=== PATIENT | male | born 1945 | race Caucasian/White ===

== ENCOUNTER 2018-01-15 14:08 | Inpatient (IN) | payer OTHER ==
[~2018-01-15] VITALS: Ht 172.7 cm; Wt 95.6 kg
[2018-01-15] VITALS (19 sets, daily range): BP systolic 112–182; BP diastolic 61–95; PULSE 86–134; RESP 15–32; TEMP 98–98.9; O2SAT 93–98
--- NOTE | 2018-01-15 14:23 | PD ---
HPI Chief Complaint: Respiratory Symptoms Time Seen by Provider: 14:16 Travel History International Travel<30 days: No Contact w/Intl Traveler<30days: No Traveled to known affect area: No History of Present Illness HPI 72-year-old male is complaining of shortness of breath. He believes he has had COPD since about 2004. 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 He is on home oxygen at night and sporadically throughout the day. He is on multiple inhalers. He was found to have atrial fibrillation recently and has been started on warfarin. He says that 2 days ago he was started on diltiazem. He says that since taking the diltiazem is been feeling weak and dizzy and has been sleeping more than usual. Today he became quite short of breath. He is a patient at the [facility]. He is not having chest pain. He does not have ankle edema. He has no history of congestive heart failure. He had a left lower lobe lobectomy because of cancer several years ago. He says that no further treatment was needed and apparently there is been no evidence of cancer recently PFSH Past Medical History Hx Anticoagulant Therapy: Yes Cardiovascular Problems: Yes ?: Not Social History Tobacco Use: No Allergies-Medications (Allergen,Severity, Reaction): Coded Allergies: ciprofloxacin (Verified Allergy, Intermediate, Nausea/Vomiting, 01/15/18) metronidazole (Verified Allergy, Intermediate, Twitching, 01/15/18) Reported Meds & Prescriptions Reported Meds & Active Scripts Active Reported Diltiazem CD 24 HR 120 Mg Caper 120 Mg PO DAILY Mucus Relief ER (Guaifenesin) 600 Mg Tab 400 Mg PO BID PRN Finasteride 5 Mg Tab 5 Mg PO DAILY Do not crush. Tamsulosin (Tamsulosin HCl) 0.4 Mg Cap 0.4 Mg PO HS Bupropion HCl 100 Mg Tab 100 Mg PO HS Simvastatin 5 Mg Tab 0 PO DAILY Claritin (Loratadine) 10 Mg Cap 10 Mg PO DAILY Omeprazole 20 Mg Tab 20 Mg PO DAILY Warfarin 7.5 Mg Tab 7.5 Mg PO Sat Warfarin 5 Mg Tab 5 Mg PO DAILY Albuterol Neb (Albuterol Sulfate) 2.5 Mg/3 Ml Neb 2.5 Mg NEB TID NEB PRN Ventolin Hfa 18 GM Inh (Albuterol Sulfate) 90 Mcg/Act Aer 2 Puff INH Q4-6H PRN Spiriva Respimat Inh (Tiotropium Inh) 2.5 Mcg/Act Aero 2 Puff INH DAILY 2.5 mcg = 1 inhalation Daliresp (Roflumilast) 500 Mcg Tab 500 Mcg PO DAILY Symbicort Inh (Budesonide/Formoterol Fumarate) 160-4.5 Mcg/Act Aero 2 Puff INH Q12HR Review of Systems General / Constitutional: No: Fever, Chills Eyes: No: Diploplia, Blurred Vision HENT: No: Headaches, Vertigo Cardiovascular: No: Chest Pain or Discomfort Respiratory: Positive: Cough, Shortness of Breath, Wheezing Gastrointestinal: No: Vomiting, Diarrhea Genitourinary: No: Urgency, Frequency Musculoskeletal: No: Myalgias, Arthralgias Skin: No Rash Neurologic: Positive: Weakness, No: Syncope Psychiatric: No: Anxiety Endocrine: No: Heat Intolerance, Cold Intolerance Hematologic/Lymphatic: No: Easy Bruising Physical Exam Narrative GENERAL: Well-developed male. He is in moderate respiratory distress. His oxygen saturation on oxygen is 91%. SKIN: Focused skin assessment warm/dry. HEAD: Atraumatic. Normocephalic. EYES: Pupils equal and round. No scleral icterus. No injection or drainage. ENT: No nasal bleeding or discharge. Mucous membranes pink and moist. NECK: Trachea midline. No JVD. CARDIOVASCULAR: Rapid IRregular rate and rhythm. No murmur appreciated. RESPIRATORY: There is accessory muscle use. There are bilateral rhonchi. There are bibasilar rales GASTROINTESTINAL: Abdomen soft, non-tender, nondistended. Hepatic and splenic margins not palpable. MUSCULOSKELETAL: No obvious deformities. No clubbing. No cyanosis. No edema. NEUROLOGICAL: Awake and alert. No obvious cranial nerve deficits. Motor grossly within normal limits. Normal speech. PSYCHIATRIC: Appropriate mood and affect; insight and judgment normal. Data Data Last Documented VS Vital Signs Date Time Temp Pulse Resp B/P (MAP) Pulse Ox O2 Delivery O2 Flow Rate FiO2 01/15/18 16:26 98 96 Nasal Cannula 2.00 01/15/18 16:26 18 124/74 (91) 01/15/18 14:40 98.0 Orders Orders Complete Blood Count With Diff (01/15/18 14:16) Comprehensive Metabolic Panel (01/15/18 14:16) B-Type Natriuretic Peptide (01/15/18 14:16) Act Partial Throm Time (Ptt) (01/15/18 14:16) Prothrombin Time / Inr (Pt) (01/15/18 14:16) Magnesium (Mg) (01/15/18 14:16) Troponin I (01/15/18 14:16) Urinalysis - C+S If Indicated (01/15/18 14:16) Iv Access Insert/Monitor (01/15/18 14:16) Electrocardiogram (01/15/18 14:16) Ecg Monitoring (01/15/18 14:16) Oximetry (01/15/18 14:16) Oxygen Administration (01/15/18 14:16) Chest, Single Ap (01/15/18 14:16) Sodium Chloride 0.9% Flush (Ns Flush) (01/15/18 14:30) Methylprednisolone So Succ Inj (Solumedr (01/15/18 14:30) Albuterol-Ipratropium Neb (Duoneb Neb) (01/15/18 14:30) Diltiazem (Cardizem) (01/15/18 14:30) Digoxin Inj (Lanoxin Inj) (01/15/18 14:30) Blood Culture (01/15/18 14:38) Ceftriaxone Inj (Rocephin Inj) (01/15/18 14:45) Azithromycin (Zithromax) (01/15/18 15:15) Admit Order (Ed Use Only) (01/15/18 16:37) Labs Laboratory Tests Test 01/15/18 14:14 White Blood Count 11.9 TH/MM3 Red Blood Count 4.93 MIL/MM3 Hemoglobin 14.0 GM/DL Hematocrit 41.4 % Mean Corpuscular Volume 83.9 FL Mean Corpuscular Hemoglobin 28.5 PG Mean Corpuscular Hemoglobin Concent 33.9 % Red Cell Distribution Width 13.7 % Platelet Count 235 TH/MM3 Mean Platelet Volume 7.0 FL Neutrophils (%) (Auto) 63.2 % Lymphocytes (%) (Auto) 22.4 % Monocytes (%) (Auto) 11.2 % Eosinophils (%) (Auto) 2.7 % Basophils (%) (Auto) 0.5 % Neutrophils # (Auto) 7.5 TH/MM3 Lymphocytes # (Auto) 2.7 TH/MM3 Monocytes # (Auto) 1.3 TH/MM3 Eosinophils # (Auto) 0.3 TH/MM3 Basophils # (Auto) 0.1 TH/MM3 CBC Comment DIFF FINAL Differential Comment Prothrombin Time 29.4 SEC Prothromb Time International Ratio 2.9 RATIO Activated Partial Thromboplast Time 43.9 SEC Blood Urea Nitrogen 32 MG/DL Creatinine 0.95 MG/DL Random Glucose 95 MG/DL Total Protein 7.7 GM/DL Albumin 3.7 GM/DL Calcium Level 9.1 MG/DL Magnesium Level 2.1 MG/DL Alkaline Phosphatase 63 U/L Aspartate Amino Transf (AST/SGOT) 23 U/L Alanine Aminotransferase (ALT/SGPT) 30 U/L Total Bilirubin 0.3 MG/DL Sodium Level 139 MEQ/L Potassium Level 4.1 MEQ/L Chloride Level 103 MEQ/L Carbon Dioxide Level 26.9 MEQ/L Anion Gap 9 MEQ/L Estimat Glomerular Filtration Rate 77 ML/MIN Troponin I LESS THAN 0.02 NG/ML B-Type Natriuretic Peptide 29 PG/ML Thyroid Stimulating Hormone 3rd Gen 0.598 uIU/ML MDM Medical Decision Making Medical Screen Exam Complete: Yes Emergency Medical Condition: Yes Medical Record Reviewed: Yes Differential Diagnosis Differential includes pneumonia, COPD, CHF, rapid atrial fib Narrative Course Patient does have rapid atrial fibrillation. He has significant COPD also and I do not think is really a candidate for beta-blockade at this time. He does feel like Cardizem is been making him tired but I do think he needs some rate control. I have ordered 60 mg of oral diltiazem and 0.25 mg IV of digoxin. His EKG shows atrial fibrillation at a rate of 127. There are no ischemic changes there is marked left axis deviation. Chest x-ray shows parenchymal changes at the right base which may represent an early inflammatory process. Blood cultures have been ordered and Rocephin initiated Diagnosis Primary Impression: COPD exacerbation Additional Impression: Rapid atrial fibrillation Saul Rothman MD Jan 15, 2018 14:23
[2018-01-15] MEDS: RESP: ALBUTEROL 2.5 MG/IPRATROPIUM 0.5 MG NEB (SCH) INH ×3 (14:29→19:31)
[2018-01-15] MEDS ORDERED: DIGOXIN 0.5 MG/2 ML VIAL IV PUSH ONE (14:30)
[2018-01-15] MEDS ORDERED: SODIUM CHLORIDE 0.9% FLUSH 10 ML FLUSH IVF PRN (14:30)
[2018-01-15] MEDS ORDERED: DILTIAZEM HCL 60 MG TAB PO ONE (14:30)
[2018-01-15] MEDS ORDERED: methylPREDNISolone SOD SUCC 125 MG/2 ML VIAL IV PUSH ONE (14:30)
--- NOTE | 2018-01-15 14:33 | RADRPT ---
EXAM DATE: 01/15/2018 2:27 PM EDT AGE/SEX: 72 years / Male INDICATIONS: Short of breath and cough CLINICAL DATA: This is the patient's initial encounter. Patient reports that signs and symptoms have been present for 1 day and indicates a pain score of 0/10. MEDICAL/SURGICAL HISTORY: Hypertension. Chronic obstructive pulmonary disease. Gastroesophage al reflux disease. . Left lobectomy COMPARISON: No prior exams available for comparison. FINDINGS: Moderate parenchymal changes right base. Left lung clear. Azygos lobe noted. The heart and pulmonary vascularity are normal. The portion of the bony skeleton visualized is unremarkable. CONCLUSION: Mild hyperinflation with moderate parental changes right base. Could be an early inflammatory process . There is no congestive failure Electronically signed by: Tad Schwab MD 01/15/2018 2:32 PM EDT
[2018-01-15] MEDS ORDERED: TIOT12.9 INH (14:36)
[2018-01-15] MEDS ORDERED: CLAR10CA3 PO (14:36)
[2018-01-15] MEDS ORDERED: DILT120C50 PO (14:36)
[2018-01-15] MEDS ORDERED: CARD120T4 PO (14:36)
[2018-01-15] MEDS ORDERED: FINA5TAB2 PO (14:36)
[2018-01-15] MEDS ORDERED: GUAI600T11 PO (14:36)
[2018-01-15] MEDS ORDERED: ROFL1TAB2 PO (14:36)
[2018-01-15] MEDS ORDERED: WARF-23 PO (14:36)
[2018-01-15] MEDS ORDERED: TAMS0.4C4 PO (14:36)
[2018-01-15] MEDS ORDERED: SIMV5TAB3 PO (14:36)
[2018-01-15] MEDS ORDERED: VENTAER INH (14:36)
[2018-01-15] MEDS ORDERED: BUPR100T4 PO (14:36)
[2018-01-15] MEDS ORDERED: SYMB160A INH (14:36)
[2018-01-15] MEDS ORDERED: OMEP20TA93 PO (14:36)
[2018-01-15] MEDS ORDERED: WARF-21 PO (14:36)
[2018-01-15] MEDS ORDERED: ALBU0.08 NEB (14:36)
[2018-01-15 14:42] LABS: AUTOMATED NEUTROPHIL # 7.5 TH/MM3 (1.8-7.7); BASOPHIL # 0.1 TH/MM3 (0-0.2); BASOPHIL % 0.5 % (0.0-2.0); EOSINOPHIL # 0.3 TH/MM3 (0-0.4); EOSINOPHIL % 2.7 % (0.0-4.0); HEMATOCRIT 41.4 % (39.0-51.0); LYMPH % 22.4 % (9.0-44.0); LYMPHOCYTE # 2.7 TH/MM3 (1.0-4.8); MEAN CELL VOLUME 83.9 FL (80.0-100.0); MEAN CORPUSCULAR HEMOGLOBIN 28.5 PG (27.0-34.0); MEAN CORPUSCULAR HGB CONC 33.9 % (32.0-36.0); MONO % 11.2 % (0.0-8.0); MONOCYTE # 1.3 TH/MM3 (0-0.9); NEUT % 63.2 % (16.0-70.0); PLATELET COUNT 235 TH/MM3 (150-450); RED BLOOD COUNT 4.93 MIL/MM3 (4.50-5.90); RED CELL DISTRIBUTION WIDTH 13.7 % (11.6-17.2); WHITE BLOOD COUNT 11.9 TH/MM3 (4.0-11.0)
[2018-01-15] MEDS ORDERED: cefTRIAXone INJ 1,000 MG in SODIUM CHLORIDE 0.9% INJ 100 ML IV ONE (14:45)
[2018-01-15 14:46] LABS: CHLORIDE 103 MEQ/L (98-107); SODIUM (NA) 139 MEQ/L (136-145)
[2018-01-15 14:49] LABS: CALCIUM 9.1 MG/DL (8.5-10.1)
[2018-01-15 14:50] LABS: ALBUMIN 3.7 GM/DL (3.4-5.0); BICARBONATE 26.9 MEQ/L (21.0-32.0); BLOOD UREA NITROGEN 32 MG/DL (7-18); GLUCOSE,RANDOM 95 MG/DL (74-106); MAGNESIUM 2.1 MG/DL (1.5-2.5)
[2018-01-15 14:52] LABS: INTERNATIONAL NORMALIZED RATIO 2.9 RATIO; PROTHROMBIN TIME - PATIENT 29.4 SEC (9.8-11.6)
[2018-01-15 14:53] LABS: ALT (GPT) 30 U/L (12-78); AST (GOT) 23 U/L (15-37); CREATININE 0.95 MG/DL (0.60-1.30); GLOMERULAR FILTRATION RATE 77 ML/MIN (>89)
[2018-01-15 14:55] LABS: TOTAL BILIRUBIN ADULT 0.3 MG/DL (0.2-1.0); TOTAL PROTEIN 7.7 GM/DL (6.4-8.2)
[2018-01-15 14:56] LABS: ALKALINE PHOSPHATASE 63 U/L (45-117)
[2018-01-15 14:58] LABS: TROPONIN I LESS THAN 0.02 NG/ML (0.02-0.05)
--- NOTE | 2018-01-15 15:07 | PD ---
Physical Exam Narrative Received sign out from previous provider to follow up on labs and admit patient. 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 Said he has been feeling generalized weakness and was walking yesterday and felt palpitations. Said he felt more sob with walking but at rest as well. Pt was found in afib in the 140s and given digoxin 0.25mg IV and diltiazem 60mg PO by previous team. Pt has significant wheezing and is in COPD exacerbation and given duonebs and methylprednisolone. Labs reviewed, WBC 11.9. H/H normal. INR therapeutic at 2.9. BUN elevated at 32. BUN/ creatinine ratio is 3:1 so will give NS IVF. BNP normal. Troponin negative. CXR showed mild hyperinflation with moderate parenchymal change in right base. Pt was given ceftriaxone after blood cultures were drawn by previous team. Will add azithromycin to cover community acquired pneumonia. Pt has not been hospitalized in the last 3 months. Pt was recently diagnosed with afib 2-3 weeks ago and HR is now 90s to low 110s. Pt is feeling a little better. Will observe overnight. Data Data Last Documented VS Vital Signs Date Time Temp Pulse Resp B/P (MAP) Pulse Ox O2 Delivery O2 Flow Rate FiO2 01/15/18 14:40 98.0 125 20 162/84 (110) 98 Nasal Cannula 2.00 Orders Orders Complete Blood Count With Diff (01/15/18 14:16) Comprehensive Metabolic Panel (01/15/18 14:16) B-Type Natriuretic Peptide (01/15/18 14:16) Act Partial Throm Time (Ptt) (01/15/18 14:16) Prothrombin Time / Inr (Pt) (01/15/18 14:16) Magnesium (Mg) (01/15/18 14:16) Troponin I (01/15/18 14:16) Urinalysis - C+S If Indicated (01/15/18 14:16) Iv Access Insert/Monitor (01/15/18 14:16) Electrocardiogram (01/15/18 14:16) Ecg Monitoring (01/15/18 14:16) Oximetry (01/15/18 14:16) Oxygen Administration (01/15/18 14:16) Chest, Single Ap (01/15/18 14:16) Sodium Chloride 0.9% Flush (Ns Flush) (01/15/18 14:30) Methylprednisolone So Succ Inj (Solumedr (01/15/18 14:30) Albuterol-Ipratropium Neb (Duoneb Neb) (01/15/18 14:30) Diltiazem (Cardizem) (01/15/18 14:30) Digoxin Inj (Lanoxin Inj) (01/15/18 14:30) Blood Culture (01/15/18 14:38) Ceftriaxone Inj (Rocephin Inj) (01/15/18 14:45) Azithromycin (Zithromax) (01/15/18 15:15) Labs Laboratory Tests Test 01/15/18 14:14 White Blood Count 11.9 TH/MM3 Red Blood Count 4.93 MIL/MM3 Hemoglobin 14.0 GM/DL Hematocrit 41.4 % Mean Corpuscular Volume 83.9 FL Mean Corpuscular Hemoglobin 28.5 PG Mean Corpuscular Hemoglobin Concent 33.9 % Red Cell Distribution Width 13.7 % Platelet Count 235 TH/MM3 Mean Platelet Volume 7.0 FL Neutrophils (%) (Auto) 63.2 % Lymphocytes (%) (Auto) 22.4 % Monocytes (%) (Auto) 11.2 % Eosinophils (%) (Auto) 2.7 % Basophils (%) (Auto) 0.5 % Neutrophils # (Auto) 7.5 TH/MM3 Lymphocytes # (Auto) 2.7 TH/MM3 Monocytes # (Auto) 1.3 TH/MM3 Eosinophils # (Auto) 0.3 TH/MM3 Basophils # (Auto) 0.1 TH/MM3 CBC Comment DIFF FINAL Differential Comment Prothrombin Time 29.4 SEC Prothromb Time International Ratio 2.9 RATIO Activated Partial Thromboplast Time 43.9 SEC Blood Urea Nitrogen 32 MG/DL Creatinine 0.95 MG/DL Random Glucose 95 MG/DL Total Protein 7.7 GM/DL Albumin 3.7 GM/DL Calcium Level 9.1 MG/DL Magnesium Level 2.1 MG/DL Alkaline Phosphatase 63 U/L Aspartate Amino Transf (AST/SGOT) 23 U/L Alanine Aminotransferase (ALT/SGPT) 30 U/L Total Bilirubin 0.3 MG/DL Sodium Level 139 MEQ/L Potassium Level 4.1 MEQ/L Chloride Level 103 MEQ/L Carbon Dioxide Level 26.9 MEQ/L Anion Gap 9 MEQ/L Estimat Glomerular Filtration Rate 77 ML/MIN Troponin I LESS THAN 0.02 NG/ML B-Type Natriuretic Peptide 29 PG/ML MDM Supervised Visit with JOVANA: No Interpretation(s) EKG: Afib at 127bpm. LAD. No significant ST elevation or depression. Diagnosis Primary Impression: COPD exacerbation Additional Impression: Rapid atrial fibrillation Admitting Information Admitting Physician Requests: Nadira Tony DO Jan 15, 2018 15:07
[2018-01-15] MEDS ORDERED: AZITHROMYCIN 250 MG TAB PO ONE (15:15)
[2018-01-15] MEDS ORDERED: DILTIAZEM INJ 125 MG in SODIUM CHLORIDE 0.9% INJ 100 ML IV PRN (17:00)
[2018-01-15] MEDS ORDERED: SODIUM CHLOR 0.9% 1000 ML INJ 1,000 ML IV ONE (17:00)
[2018-01-15] MEDS ORDERED: SODIUM CHLORIDE 0.9% FLUSH 10 ML FLUSH IV FLUSH PRN (17:00)
--- NOTE | 2018-01-15 17:07 | HHI.HP ---
[facility] Service [facility] Primary Care Physician [facility] Admission Diagnosis COPD exacerbation, right lower lobe pneumonia, afib RVR Diagnoses: Chief Complaint: Cough and shortness of breath Travel History International Travel<30 Days: No Contact w/Intl Traveler <30 Da: No Traveled to Known Affected Are: No History of Present Illness This patient is a very pleasant 72-year-old gentleman with a history of COPD and newly diagnosed atrial fibrillation. 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 His bakery machine mechanic supervisor diagnosed him as having atrial fibrillation and he was started on diltiazem and warfarin. He had been taking warfarin for about 3 weeks and the diltiazem for a few days. He noticed that he was increasingly short of breath and dizzy so he came to the hospital. He also reports increased cough with some chest tightness in the middle of his chest nonradiating. The cough is worse when he takes a deep breath. His INR is 2.9. He reports good adherence with medical follow-up. He normally is pretty independent with his activities of daily living. Here he has been tachycardic on telemetry. In fact he is in atrial fibrillation with rapid ventricular response and the rate is in the 130s to low 100s. He was given digoxin and felt better. Patient also was found to be tachypneic with early signs of pneumonia on my review of his chest x-ray. He is started on antibiotics and blood cultures are taken. Patient will need to be admitted to the hospital due to probable early pneumonia/COPD exacerbation with respiratory distress as well as with atrial fibrillation and rapid ventricular response Review of Systems Constitutional: COMPLAINS OF: Fatigue, Dizziness, DENIES: Diaphoretic episodes , Fever, Weight gain, Weight loss, Chills, Change in appetite, Night Sweats Endocrine: DENIES: Heat/cold intolerance, Polydipsia, Polyuria, Polyphagia Eyes: DENIES: Blurred vision, Diplopia, Eye inflammation, Eye pain, Vision loss , Photosensitivity, Double Vision Ears, nose, mouth, throat: DENIES: Tinnitus, Hearing loss, Vertigo, Nasal discharge, Oral lesions, Throat pain, Hoarseness, Ear Pain, Running Nose, Epistaxis, Sinus Pain, Toothache, Odynophagia Respiratory: COMPLAINS OF: Sputum production, Shortness of breath, DENIES: Apneas, Cough, Snoring, Wheezing, Hemoptysis Cardiovascular: COMPLAINS OF: Chest pain, Dyspnea on Exertion, DENIES: Palpitations, Syncope, PND, Lower Extremity Edema, Orthopnea, Claudication Gastrointestinal: DENIES: Abdominal pain, Black stools, Bloody stools, Constipation, Diarrhea, Nausea, Vomiting, Difficulty Swallowing, Anorexia Genitourinary: DENIES: Sexual dysfunction, Urinary frequency, Urinary incontinence, Urgency, Hematuria, Dysuria, Nocturia, Penile Discharge, Testicular Pain, Testicular Swelling Musculoskeletal: DENIES: Joint pain, Muscle aches, Stiffness, Joint Swelling, Back pain, Neck pain Integumentary: DENIES: Abnormal pigmentation, Nail changes, Pruritus, Rash Hematologic/lymphatic: DENIES: Bruising, Lymphadenopathy Immunologic/allergic: DENIES: Eczema, Urticaria Neurologic: DENIES: Abnormal gait, Headache, Localized weakness, Paresthesias, Seizures, Speech Problems, Tremor, Poor Balance Psychiatric: DENIES: Anxiety, Confusion, Mood changes, Depression, Hallucinations, Agitation, Suicidal Ideation, Homicidal Ideation, Delusions Except as stated in HPI: all other systems reviewed are Neg Past Family Social History Past Medical History Atrial fibrillation, COPD, benign prostatic hyperplasia Past Surgical History Right lobectomy secondary to lung cancer Cholecystectomy Umbilical and inguinal hernia repair Reported Medications Reviewed in the EMR, recently started diltiazem and Coumadin Allergies: Coded Allergies: ciprofloxacin (Verified Allergy, Intermediate, Nausea/Vomiting, 01/15/18) metronidazole (Verified Allergy, Intermediate, Twitching, 01/15/18) Active Ordered Medications Reviewed in the EMR Family History Hypertension Coronary disease Social History Quit tobacco 2001 quit alcohol 2000, Retired [employer] Physical Exam Vital Signs Vital Signs Date Time Temp Pulse Resp B/P (MAP) Pulse Ox O2 Delivery O2 Flow Rate FiO2 01/15/18 16:26 98 96 Nasal Cannula 2.00 01/15/18 16:26 86 18 124/74 (91) 96 Nasal Cannula 2.00 01/15/18 14:40 98.0 125 20 162/84 (110) 98 Nasal Cannula 2.00 01/15/18 14:30 97 Nasal Cannula 2.00 01/15/18 14:29 107 22 182/87 (118) 97 Nasal Cannula 2.00 01/15/18 14:23 97 Nasal Cannula 2.00 01/15/18 14:17 141 24 96 Nasal Cannula 2.00 01/15/18 14:13 98.0 134 22 176/95 (122) 96 Physical Exam GENERAL: This is a well-nourished, well-developed patient, short of breath with minimal exertion SKIN: No rashes, ecchymoses or lesions. Cool and dry. HEAD: Atraumatic. Normocephalic. No temporal or scalp tenderness. EYES: Pupils equal round and reactive. Extraocular motions intact. No scleral icterus. No injection or drainage. ENT: Nose without bleeding, purulent drainage or septal hematoma. Throat without erythema, tonsillar hypertrophy or exudate. Uvula midline. Airway patent. NECK: Trachea midline. No JVD or lymphadenopathy. Supple, nontender, no meningeal signs. CARDIOVASCULAR: Atrial fibrillation with rapid response without murmurs, gallops , or rubs. RESPIRATORY: Decreased breath sounds bilaterally GASTROINTESTINAL: Abdomen soft, non-tender, nondistended. No hepato-splenomegaly , or palpable masses. No guarding. MUSCULOSKELETAL: Extremities without clubbing, cyanosis, or edema. No joint tenderness, effusion, or edema noted. No calf tenderness. Negative Homans sign bilaterally. NEUROLOGICAL: Awake and alert. Cranial nerves II through XII intact. Motor and sensory grossly within normal limits. Five out of 5 muscle strength in all muscle groups. Normal speech. Laboratory Laboratory Tests Test 01/15/18 14:14 White Blood Count 11.9 Red Blood Count 4.93 Hemoglobin 14.0 Hematocrit 41.4 Mean Corpuscular Volume 83.9 Mean Corpuscular Hemoglobin 28.5 Mean Corpuscular Hemoglobin Concent 33.9 Red Cell Distribution Width 13.7 Platelet Count 235 Mean Platelet Volume 7.0 Neutrophils (%) (Auto) 63.2 Lymphocytes (%) (Auto) 22.4 Monocytes (%) (Auto) 11.2 Eosinophils (%) (Auto) 2.7 Basophils (%) (Auto) 0.5 Neutrophils # (Auto) 7.5 Lymphocytes # (Auto) 2.7 Monocytes # (Auto) 1.3 Eosinophils # (Auto) 0.3 Basophils # (Auto) 0.1 CBC Comment DIFF FINAL Differential Comment Prothrombin Time 29.4 Prothromb Time International Ratio 2.9 Activated Partial Thromboplast Time 43.9 Blood Urea Nitrogen 32 Creatinine 0.95 Random Glucose 95 Total Protein 7.7 Albumin 3.7 Calcium Level 9.1 Magnesium Level 2.1 Alkaline Phosphatase 63 Aspartate Amino Transf (AST/SGOT) 23 Alanine Aminotransferase (ALT/SGPT) 30 Total Bilirubin 0.3 Sodium Level 139 Potassium Level 4.1 Chloride Level 103 Carbon Dioxide Level 26.9 Anion Gap 9 Estimat Glomerular Filtration Rate 77 Troponin I LESS THAN 0.02 B-Type Natriuretic Peptide 29 Date/Time Source Procedure Growth Status 01/15/18 14:50 Blood Peripheral Aerobic Blood Culture Pending Received 01/15/18 14:50 Blood Peripheral Anaerobic Blood Culture Pending Received Result Diagram: 01/15/18 1414 01/15/18 1414 Imaging Last Impressions Chest X-Ray 01/15/18 1416 Signed Impressions: CONCLUSION: Mild hyperinflation with moderate parental changes right base. Could be an jamila y inflammatory process. There is no congestive failure Caprini VTE Risk Assessment Caprini VTE Risk Assessment: Mod/High Risk (score >= 2) VTE Pharm Contraindication: Coagulopathy,INR elevated Caprini Risk Assessment Model Point Value = 1 Point Value = 2 Point Value = 3 Point Value = 5 Age 41-60 Minor surgery BMI > 25 kg/m2 Swollen legs Varicose veins or History of unexplained or recurrent spontaneous Oral contraceptives or hormone replacement Sepsis (< 1 month) Serious lung disease, including pneumonia (< 1 month) Abnormal pulmonary function Acute myocardial infarction Congestive heart failure (< 1 month) History of inflammatory bowel disease Medical patient at bed rest Age 61-74 Arthroscopic surgery Major open surgery (> 45 min) Laparoscopic surgery (> 45 min) Malignancy Confined to bed (> 72 hours) Immobilizing plaster cast Central venous access Age >= 75 History of VTE Family history of VTE Factor V Leiden Prothrombin [id number] Lupus anticoagulant Anticardiolipin antibodies Elevated serum homocysteine Heparin-induced thrombocytopenia Other congenital or acquired thrombophilia Stroke (< 1 month) Elective arthroplasty Hip, pelvis, or leg fracture Acute spinal cord injury (< 1 month) Prophylaxis Regimen Total Risk Factor Score Risk Level Prophylaxis Regimen 0-1 Low Early ambulation 2 Moderate Order ONE of the following: *Sequential Compression Device (SCD) *Heparin 5000 units SQ BID 3-4 Higher Order ONE of the following medications: *Heparin 5000 units SQ TID *Enoxaparin/Lovenox 40 mg SQ daily (WT < 150 kg, CrCl > 30 mL/min) *Enoxaparin/Lovenox 30 mg SQ daily (WT < 150 kg, CrCl > 10-29 mL/min) *Enoxaparin/Lovenox 30 mg SQ BID (WT < 150 kg, CrCl > 30 mL/min) AND/OR *Sequential Compression Device (SCD) 5 or more Highest Order ONE of the following medications: *Heparin 5000 units SQ TID (Preferred with Epidurals) *Enoxaparin/Lovenox 40 mg SQ daily (WT < 150 kg, CrCl > 30 mL/min) *Enoxaparin/Lovenox 30 mg SQ daily (WT < 150 kg, CrCl > 10-29 mL/min) *Enoxaparin/Lovenox 30 mg SQ BID (WT < 150 kg, CrCl > 30 mL/min) AND *Sequential Compression Device (SCD) Assessment and Plan Problem List: (1) Afib ICD Code: I48.91 - Unspecified atrial fibrillation Plan: rate not controlled Patient recently started on diltiazem and warfarin ( INR is 2.9) Will give a trial diltiazem drip May need titration in his diltiazem which was started several days ago Continue telemetry Add beta-carmelita if needed Home medications have been adjusted to reduce side effects (patient is on Daliresp and guaifenesin) (2) COPD exacerbation ICD Code: J44.1 - Chronic obstructive pulmonary disease with (acute) exacerbation Status: Acute Plan: Continue treatment early pneumonia with IV antibiotics Rocephin and azithromycin p.o. 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 In the case of services not specified as inpatient-only, they are appropriately provided as inpatient services in accordance with the 2-midnight benchmark. Estimated LOS (days): 3 3 days is the estimated time the patient will need to remain in the hospital, assuming treatment plan goals are met and no additional complications. Post-Hospital Plan: Anne Marie Garcia MD Jan 15, 2018 17:07
[2018-01-15 17:14] LABS: BILIRUBIN, URINE NEG (NEG); BLOOD, URINE MOD (NEG); GLUCOSE,URINE NEG (NEG); KETONE, URINE NEG (NEG); NITRITE,URINE NEG (NEG); PH, URINE 6.5 (5.0-8.5); URINE COLOR YELLOW (YELLW/STRAW); URINE LEUKOCYTE ESTERASE NEG (NEG)
[2018-01-15 17:25] LABS: BACTERIA, URINE RARE /hpf; WBC, URINE 0-2 /hpf (0-5)
[2018-01-15] MEDS ORDERED: METOPROLOL TARTRATE 5 MG/5 ML VIAL IV PUSH PRN (17:30)
[2018-01-15 17:39] LABS: MAGNESIUM 2.2 MG/DL (1.5-2.5)
[2018-01-15] MEDS: DILTIAZEM HCL 60 MG TAB PO SCH (18:46)
[2018-01-15] MEDS: TAMSULOSIN HCL 0.4 MG CAP PO SCH (22:05)
[2018-01-15] MEDS: SODIUM CHLORIDE 0.9% FLUSH 10 ML FLUSH IV FLUSH SCH (22:05)
[2018-01-15] MEDS: methylPREDNISolone SOD SUCC 40 MG/1 ML VIAL IV PUSH SCH (22:06)
[2018-01-15] MEDS: buPROPion HCL 100 MG TAB PO SCH (22:09)
[2018-01-15] MEDS: BUDESONIDE-FORMOTEROL 160/4.5 MCG INHALER INH SCH (22:10)
[2018-01-16] VITALS (33 sets, daily range): BP systolic 111–134; BP diastolic 54–76; PULSE 50–104; RESP 18–42; TEMP 96.7–98.7; O2SAT 87–95
[2018-01-16] MEDS: DILTIAZEM HCL 60 MG TAB PO SCH ×5 (00:13→23:06)
[2018-01-16] MEDS: RESP: ALBUTEROL 2.5 MG/IPRATROPIUM 0.5 MG NEB (SCH) INH ×4 (07:28→20:10)
--- NOTE | 2018-01-16 08:56 | HHI.PR ---
Subjective Remarks Patient seen and evaluated today in follow-up for COPD exacerbation and for rapid ventricular response. Overall doing better. Heart rate better controlled Objective Vitals Vital Signs Date Time Temp Pulse Resp B/P (MAP) Pulse Ox O2 Delivery O2 Flow Rate FiO2 01/16/18 08:27 98.6 86 28 134/61 (85) 91 01/16/18 07:30 93 Nasal Cannula 01/16/18 06:15 74 26 112/72 (85) 92 01/16/18 06:04 73 01/16/18 05:14 97.5 78 31 131/61 (84) 91 01/16/18 05:00 80 01/16/18 04:28 87 01/16/18 04:00 97.3 78 26 119/66 (83) 90 01/16/18 03:32 80 24 111/56 (74) 89 01/16/18 03:19 87 01/16/18 03:00 80 21 114/67 (83) 92 01/16/18 02:06 96 01/16/18 01:51 82 24 114/67 (83) 87 01/16/18 01:51 82 24 114/67 (83) 87 01/16/18 01:00 100 01/16/18 00:18 104 01/16/18 00:09 98.3 90 24 126/62 (83) 91 01/16/18 00:09 90 24 126/62 (83) 91 01/15/18 23:00 116 01/15/18 23:00 93 01/15/18 22:28 104 27 140/64 (89) 95 01/15/18 22:17 102 26 135/68 (90) 96 01/15/18 22:16 113 01/15/18 22:00 98.9 96 29 135/68 (90) 94 01/15/18 21:00 110 01/15/18 20:46 98.5 110 29 120/63 (82) 94 01/15/18 20:46 110 29 120/63 (82) 94 01/15/18 20:07 115 01/15/18 19:31 96 Nasal Cannula 2.00 01/15/18 19:15 122 32 112/61 (78) 95 01/15/18 19:15 113 01/15/18 18:18 98 15 119/64 (82) 96 01/15/18 18:03 98.4 100 28 123/65 (84) 93 01/15/18 18:03 123/65 (84) 01/15/18 18:00 98.4 100 28 93 01/15/18 17:45 98 18 127/75 (92) 96 Nasal Cannula 2.00 01/15/18 16:26 98 96 Nasal Cannula 2.00 01/15/18 16:26 86 18 124/74 (91) 96 Nasal Cannula 2.00 01/15/18 14:40 98.0 125 20 162/84 (110) 98 Nasal Cannula 2.00 01/15/18 14:30 97 Nasal Cannula 2.00 01/15/18 14:29 107 22 182/87 (118) 97 Nasal Cannula 2.00 01/15/18 14:23 97 Nasal Cannula 2.00 01/15/18 14:17 141 24 96 Nasal Cannula 2.00 01/15/18 14:13 98.0 134 22 176/95 (122) 96 I/O 01/15/18 01/15/18 01/15/18 01/16/18 01/16/18 01/16/18 07:00 15:00 23:00 07:00 15:00 23:00 Intake Total 1460 ml Output Total 650 ml 900 ml Balance 810 ml -900 ml Intake Oral 360 ml IV Total 1100 ml Output Urine Total 650 ml 900 ml # Voids 1 Result Diagram: 01/15/18 1414 01/15/18 1414 Imaging Last Impressions Chest X-Ray 01/15/18 1416 Signed Impressions: CONCLUSION: Mild hyperinflation with moderate parental changes right base. Could be an jamila y inflammatory process. There is no congestive failure Objective Remarks GENERAL: This is a well-nourished, well-developed patient, in no apparent distress. CARDIOVASCULAR: Atrial fibrillation and rhythm without murmurs, gallops, or rubs. RESPIRATORY: Bilateral wheezes and rhonchi GASTROINTESTINAL: Abdomen soft, non-tender, nondistended. Normal active bowel sounds MUSCULOSKELETAL: Extremities without clubbing, cyanosis, or edema. NEURO: Alert & Oriented x4 to person, place, time, situation. Moves all ext x4 A/P Problem List: (1) Afib ICD Code: I48.91 - Unspecified atrial fibrillation Plan: rate not controlled Patient recently started on diltiazem and warfarin ( INR is 2.9) Continue diltiazem p.o. every 6, Lopressor IV if needed Continue telemetry Follow-up echo (2) COPD exacerbation ICD Code: J44.1 - Chronic obstructive pulmonary disease with (acute) exacerbation Status: Acute Plan: Continue treatment early pneumonia with IV antibiotics Rocephin and azithromycin p.o. Continue nebulized bronchodilators Continue IV steroids Pulmonary toilet We will follow with respiratory therapy and wean oxygen as needed (3) BPH (benign prostatic hyperplasia) ICD Code: N40.0 - Benign prostatic hyperplasia without lower urinary tract symptoms Plan: Continue home medications Discharge Planning MedSur bed Discharge home 1-2 days pending progress Anne Marie De Leon MD Jan 16, 2018 08:56
[2018-01-16] MEDS ORDERED: PATIENT OWN MEDICATION INH SCH (09:00)
[2018-01-16] MEDS: SODIUM CHLORIDE 0.9% FLUSH 10 ML FLUSH IV FLUSH SCH ×2 (09:59→21:58)
[2018-01-16] MEDS: methylPREDNISolone SOD SUCC 40 MG/1 ML VIAL IV PUSH SCH ×2 (09:59→21:58)
[2018-01-16] MEDS: AZITHROMYCIN 250 MG TAB PO SCH (10:00)
[2018-01-16] MEDS: ROFLUMILAST 500 MCG TAB PO SCH (10:00)
[2018-01-16] MEDS: FINASTERIDE 5 MG TAB PO SCH (10:00)
[2018-01-16] MEDS: BUDESONIDE-FORMOTEROL 160/4.5 MCG INHALER INH SCH ×2 (10:04→22:58)
[2018-01-16] MEDS ORDERED: cefTRIAXone INJ 1,000 MG in SODIUM CHLORIDE 0.9% INJ 100 ML IV SCH (15:00)
--- NOTE | 2018-01-16 15:02 | ECHRPT ---
Indication: ATRIAL FIB/FLUTTER CONCLUSIONS The left ventricular systolic function is hyperdynamic with an estimated ejection fraction in the ra nge of 65- 70%. Moderate concentric left ventricular hypertrophy. There is trace tricuspid valve regurgitation. BP: 112 / 72 HR: 74 Rhythm: Atrial fibrillation, Atrial flut ter MEASUREMENTS (Male / Female) Normal Values Technical Quality:Fair 2D ECHO LV Diastolic Diameter PLAX 4.2 cm 4.2 - 5.9 / 3.9 - 5.3 cm LV Systolic Diameter PLAX 2.8 cm IVS Diastolic Thickness 1.6 cm 0.6 - 1.0 / 0.6 - 0.9 cm LVPW Diastolic Thickness 1.5 cm 0.6 - 1.0 / 0.6 - 0.9 cm LV Relative Wall Thickness 0.7 RV Internal Dim ED PLAX 3.0 cm LVOT Diameter 2.1 cm Aortic Root Diameter 3.4 cm LA Systolic Diameter LX 4.2 cm 3.0 - 4.0 / 2.7 - 3.8 cm M-MODE AV Cusp Separation MM 1.9 cm DOPPLER AV Peak Velocity 196.0 cm/s AV Peak Gradient 15.4 mmHg AV Mean Gradient 8.0 mmHg AV Velocity Time Integral 32.9 cm LVOT Peak Velocity 78.2 cm/s LVOT Peak Gradient 2.4 mmHg LVOT Velocity Time Integral 12.5 cm LVOT Cardiac Index 1481.6 cm/minm AV Area Cont Eq vti 1.3 cm AV Area Cont Eq pk 1.4 cm Mitral E Point Velocity 83.7 cm/s LV E' Lateral Velocity 18.8 cm/s Mitral E to LV E' Lateral Ratio 4.4 LV E' Septal Velocity 9.3 cm/s Mitral E to LV E' Septal Ratio 9.0 TR Peak Velocity 320.0 cm/s TR Peak Gradient 41.0 mmHg Right Atrial Pressure 10.0 mmHg Pulmonary Artery Systolic Pressu 51.0 mmHg Right Ventricular Systolic Press 51.0 mmHg PV Peak Velocity 89.8 cm/s PV Peak Gradient 3.2 mmHg FINDINGS LEFT VENTRICLE Normal left ventricular size. Moderate concentric left ventricular hypertrophy. The left ventricular systolic function is hyperdynamic with an estimated ejection fraction in the ra nge of 65- 70%. RIGHT VENTRICLE Normal right ventricular size and systolic function. LEFT ATRIUM The left atrial size is [id number] dilated. RIGHT ATRIUM The right atrial size is normal. ATRIAL SEPTUM No atrial level shunt is demonstrated by color flow Doppler interrogation. AORTA The aortic root and proximal ascending aorta are normal in size on limited imaging. MITRAL VALVE Structurally normal mitral valve. No mitral valve stenosis or regurgitation. AORTIC VALVE Aortic valve sclerosis is present. TRICUSPID VALVE There is trace tricuspid valve regurgitation. The estimated pulmonary arterial pressure is 51 mmHg. No tricuspid valve stenosis. PULMONARY VALVE No pulmonary valve regurgitation or stenosis. VESSELS The inferior vena cava was not well visualized. PERICARDIUM No pericardial effusion. Ej Campbell DO (Electronically Signed) Final Date:16 January 2018 15:01
[2018-01-16] MEDS ORDERED: WARFARIN SOD 5 MG TAB PO SCH (16:00)
--- NOTE | 2018-01-16 18:17 | EKG ---
Date Performed: 01/15/2018 Time Performed: 14:26:53 PTAGE: 72 years EKG: ATRIAL FIBRILLATION WITH RAPID VENTRICULAR RESPONSE MARKED LEFT AXIS DEVIATION ABNORMAL ECG NO PREVIOUS TRACING DOCTOR: Judie Pimentel Interpretating Date/Time 01/16/2018 18:13:23
[2018-01-16] MEDS: buPROPion HCL 100 MG TAB PO SCH (21:58)
[2018-01-16] MEDS: TAMSULOSIN HCL 0.4 MG CAP PO SCH (21:58)
[2018-01-17] VITALS: BP 129/61; PULSE 56; RESP 18; TEMP 96.8; O2SAT 97
[2018-01-17 04:00] VITALS: BP 118/58; PULSE 52; RESP 18; TEMP 96.5; O2SAT 96
[2018-01-17 05:03] LABS: AUTOMATED NEUTROPHIL # 16.6 TH/MM3 (1.8-7.7); EOSINOPHIL # 0.1 TH/MM3 (0-0.4); EOSINOPHIL % 0.7 % (0.0-4.0); HEMATOCRIT 36.6 % (39.0-51.0); LYMPH % 3.7 % (9.0-44.0); LYMPHOCYTE # 0.7 TH/MM3 (1.0-4.8); MEAN CELL VOLUME 85.7 FL (80.0-100.0); MEAN CORPUSCULAR HEMOGLOBIN 28.1 PG (27.0-34.0); MEAN CORPUSCULAR HGB CONC 32.8 % (32.0-36.0); MEAN PLATELET VOLUME 7.3 FL (7.0-11.0); MONO % 2.3 % (0.0-8.0); MONOCYTE # 0.4 TH/MM3 (0-0.9); NEUT % 93.3 % (16.0-70.0); PLATELET COUNT 226 TH/MM3 (150-450); RED BLOOD COUNT 4.27 MIL/MM3 (4.50-5.90); RED CELL DISTRIBUTION WIDTH 13.9 % (11.6-17.2); WHITE BLOOD COUNT 17.8 TH/MM3 (4.0-11.0)
[2018-01-17 05:10] LABS: INTERNATIONAL NORMALIZED RATIO 2.9 RATIO; PROTHROMBIN TIME - PATIENT 28.8 SEC (9.8-11.6)
[2018-01-17 05:13] LABS: CALCIUM 8.7 MG/DL (8.5-10.1)
[2018-01-17 05:14] LABS: BICARBONATE 25.5 MEQ/L (21.0-32.0)
[2018-01-17] MEDS: DILTIAZEM HCL 60 MG TAB PO SCH (06:00)
[2018-01-17] MEDS: RESP: ALBUTEROL 2.5 MG/IPRATROPIUM 0.5 MG NEB (SCH) INH (07:28)
[2018-01-17 07:30] VITALS: O2SAT 98
[2018-01-17 08:00] VITALS: PULSE 73
[2018-01-17] MEDS: FINASTERIDE 5 MG TAB PO SCH (08:33)
[2018-01-17] MEDS: ROFLUMILAST 500 MCG TAB PO SCH (08:34)
[2018-01-17] MEDS: AZITHROMYCIN 250 MG TAB PO SCH (08:34)
[2018-01-17] MEDS: methylPREDNISolone SOD SUCC 40 MG/1 ML VIAL IV PUSH SCH (08:34)
[2018-01-17] MEDS: BUDESONIDE-FORMOTEROL 160/4.5 MCG INHALER INH SCH (08:34)
[2018-01-17] MEDS: SODIUM CHLORIDE 0.9% FLUSH 10 ML FLUSH IV FLUSH SCH (08:36)
[2018-01-17 09:00] VITALS: BP 140/63; PULSE 77; RESP 20; TEMP 96.6; O2SAT 96
[2018-01-17] MEDS ORDERED: DILTIAZEM-CD 120 MG CAP ER PO SCH (09:00)
--- NOTE | 2018-01-17 11:23 | HHI.DCPOC ---
Discharge Care Plan Diagnosis: (1) COPD exacerbation (2) Rapid atrial fibrillation Goals to Promote Your Health * To prevent worsening of your condition and complications * To maintain your health at the optimal level Directions to Meet Your Goals Take your medications as prescribed Follow your dietary instruction Follow activity as directed Keep your appointments as scheduled Take your immunizations and boosters as scheduled If your symptoms worsen call your PCP, if no PCP go to Urgent Care Center or Emergency Room Smoking is Dangerous to Your Health. Avoid second hand smoke Call the 24-hour hour crisis hotline for domestic abuse at Anne Marie De Leon MD Jan 17, 2018 11:23
[2018-01-17] MEDS ORDERED: PRED20 PO (11:25)
[2018-01-17] MEDS ORDERED: AZIT500T2 PO (11:26)
[2018-01-17] MEDS ORDERED: CEFU1TAB18 PO (11:26)
--- NOTE | 2018-01-17 11:28 | HHI.DS ---
Discharge Summary Admission Date Jan 15, 2018 at 16:57 Discharge Date: Jan 17, 2018 Admitting Diagnosis COPD exacerbation, right lower lobe pneumonia, afib RVR (1) Afib ICD Code: I48.91 - Unspecified atrial fibrillation (2) COPD exacerbation ICD Code: J44.1 - Chronic obstructive pulmonary disease with (acute) exacerbation Status: Acute (3) BPH (benign prostatic hyperplasia) ICD Code: N40.0 - Benign prostatic hyperplasia without lower urinary tract symptoms Procedures None Brief History - From Admission This patient is a very pleasant 72-year-old gentleman with a history of COPD and newly diagnosed atrial fibrillation. Recently he had felt increasingly short of breath so he saw his clinical nurse reviewer. His clinical nurse reviewer diagnosed him as having atrial fibrillation and he was started on diltiazem and warfarin. He had been taking warfarin for about 3 weeks and the diltiazem for a few days. He noticed that he was increasingly short of breath and dizzy so he came to the hospital. He also reports increased cough with some chest tightness in the middle of his chest nonradiating. The cough is worse when he takes a deep breath. His INR is 2.9. He reports good adherence with medical follow-up. He normally is pretty independent with his activities of daily living. Here he has been tachycardic on telemetry. In fact he is in atrial fibrillation with rapid ventricular response and the rate is in the 130s to low 100s. He was given digoxin and felt better. Patient also was found to be tachypneic with early signs of pneumonia on my review of his chest x-ray. He is started on antibiotics and blood cultures are taken. Patient will need to be admitted to the hospital due to probable early pneumonia/COPD exacerbation with respiratory distress as well as with atrial fibrillation and rapid ventricular response CBC/BMP: 01/17/18 0447 01/17/18 0447 Significant Findings Laboratory Tests Test 01/15/18 14:14 01/15/18 16:55 01/17/18 04:47 White Blood Count 11.9 TH/MM3 (4.0-11.0) 17.8 TH/MM3 (4.0-11.0) Monocytes (%) (Auto) 11.2 % (0.0-8.0) Monocytes # (Auto) 1.3 TH/MM3 (0-0.9) Prothrombin Time 29.4 SEC (9.8-11.6) 28.8 SEC (9.8-11.6) Activated Partial Thromboplast Time 43.9 SEC (24.3-30.1) Blood Urea Nitrogen 32 MG/DL (7-18) 35 MG/DL (7-18) Estimat Glomerular Filtration Rate 77 ML/MIN (>89) 73 ML/MIN (>89) Troponin I LESS THAN 0.02 NG/ML Urine Occult Blood MOD (NEG) Urine RBC 25-49 /hpf (0-3) Urine Bacteria RARE /hpf (NONE) Red Blood Count 4.27 MIL/MM3 (4.50-5.90) Hemoglobin 12.0 GM/DL (13.0-17.0) Hematocrit 36.6 % (39.0-51.0) Neutrophils (%) (Auto) 93.3 % (16.0-70.0) Lymphocytes (%) (Auto) 3.7 % (9.0-44.0) Neutrophils # (Auto) 16.6 TH/MM3 (1.8-7.7) Lymphocytes # (Auto) 0.7 TH/MM3 (1.0-4.8) Random Glucose 156 MG/DL (74-106) PE at Discharge GENERAL: This is a well-nourished, well-developed patient, in no apparent distress. CARDIOVASCULAR: Atrial fibrillation and rhythm without murmurs, gallops, or rubs. RESPIRATORY: Bilateral wheezes and rhonchi GASTROINTESTINAL: Abdomen soft, non-tender, nondistended. Normal active bowel sounds MUSCULOSKELETAL: Extremities without clubbing, cyanosis, or edema. NEURO: Alert & Oriented x4 to person, place, time, situation. Moves all ext x4 Pt update on day of discharge Patient doing much better. Heart rate controlled. Discharge plans discussed with patient and spouse at bedside Hospital Course Patient is a 72-year-old gentleman with COPD exacerbation and atrial fibrillation with rapid ventricular rate. Both issues improved with treatment. He was discharged home Pt Condition on Discharge: Good Discharge Disposition: Discharge Home Discharge Time: <= 30 minutes Discharge Instructions DIET: Follow Instructions for: Coumadin (Warfarin) Diet Activities you can perform: Regular-No Restrictions Follow up Referrals: PCP Follow-up New Medications: Azithromycin (Azithromycin) 500 Mg Tab 500 MG PO DAILY for Infection, #5 TAB 0 Refills Cefuroxime (Ceftin) 250 Mg Tab 250 MG PO BID for Infection, #10 TAB Prednisone (Prednisone) 20 Mg Tab 20 MG PO DIRECTED for Inflammation, #15 TAB 0 Refills 40 MG twice a day x 3 days, then 20 MG daily x 3 days, then 10 MG daily x 3 days Continued Medications: Albuterol 18 GM Inh (Ventolin Hfa 18 GM Inh) 90 Mcg/Act Aer 2 PUFF INH Q4-6H PRN for SHORTNESS OF BREATH, #1 INHALER 0 Refills Albuterol Neb (Albuterol Neb) 2.5 Mg/3 Ml Neb 2.5 MG NEB TID NEB PRN for SHORTNESS OF BREATH, #60 NEBULE 0 Refills Budesonide-Formoterol Inh (Symbicort Inh) 160-4.5 Mcg/Act Aero 2 PUFF INH Q12HR, #1 INHALER 0 Refills Bupropion HCl (Bupropion HCl) 100 Mg Tab 100 MG PO HS for Control Depression, TAB 0 Refills Diltiazem CD 24 HR (Diltiazem CD 24 HR) 120 Mg Caper 120 MG PO DAILY, #30 CAP 0 Refills Finasteride (Finasteride) 5 Mg Tab 5 MG PO DAILY for Manage Prostate Problems, #30 TAB 0 Refills Do not crush. Guaifenesin ER (Mucus Relief ER) 600 Mg Tab 400 MG PO BID PRN for CHEST CONGESTION AND/OR COUGH, TAB 0 Refills Loratadine (Claritin) 10 Mg Cap 10 MG PO DAILY for Allergy Management, CAP 0 Refills Omeprazole (Omeprazole) 20 Mg Tab 20 MG PO DAILY, #30 TAB 0 Refills Roflumilast (Daliresp) 500 Mcg Tab 500 MCG PO DAILY for COPD, #30 TAB 0 Refills Simvastatin (Simvastatin) 5 Mg Tab 0 PO DAILY for Cholesterol Management, #30 TAB 0 Refills Tamsulosin (Tamsulosin) 0.4 Mg Cap 0.4 MG PO HS for Manage Prostate Problems, #30 CAP 0 Refills Tiotropium Inh (Spiriva Respimat Inh) 2.5 Mcg/Act Aero 2 PUFF INH DAILY for COPD, #1 INHALER 0 Refills 2.5 mcg = 1 inhalation Warfarin (Warfarin) 5 Mg Tab 5 MG PO DAILY for Blood Clot Prevention, #30 TAB 0 Refills Warfarin (Warfarin) 7.5 Mg Tab 7.5 MG PO sat for Blood Clot Prevention, #30 TAB 0 Refills Anne Marie De Leon MD Jan 17, 2018 11:28
[2018-01-17 11:58] VITALS: BP 149/67; PULSE 74; RESP 20; TEMP 97.1; O2SAT 95
[2018-01-17] MEDS ORDERED: RESP: ALBUTEROL 2.5 MG/IPRATROPIUM 0.5 MG NEB (SCH) INH (14:00)
== END 2018-01-17 13:13 | disposition home or self-care (01) | DRG 308 ==
LOC: PHED 14:08 → PHEDA 16:38 → OBSVTOIN 16:57 → PHICU 18:11 → PH3A 01-16 16:35
PROVIDERS: ADMIT Hospitalist; ATTEND Hospitalist
DX: I48.91 Unspecified atrial fibrillation (principal); J18.9 Pneumonia, unspecified organism; J44.0 Chronic obstructive pulmonary disease with (acute) lower respiratory infection; Z99.81 Dependence on supplemental oxygen; J44.1 Chronic obstructive pulmonary disease with (acute) exacerbation; N40.0 Benign prostatic hyperplasia without lower urinary tract symptoms; Z79.01 Long term (current) use of anticoagulants; Z85.118 Personal history of other malignant neoplasm of bronchus and lung; Z87.891 Personal history of nicotine dependence; Z88.1 Allergy status to other antibiotic agents; Z90.2 Acquired absence of lung [part of]
CPT/HCPCS: 71045; 80048; 80053; 81001; 83735; 83880; 84443; 84484; 85025; 85610; 85730; 87040; 93005; 93306; 94640; 94664; J0696; J1160; J2920; J2930; J7030